=== PATIENT | male | born 1990 | race Two or more races ===

== ENCOUNTER 2019-12-11 20:35 | Emergency (ER) | payer OTHER | END 2019-12-11 22:18 | disposition home or self-care (01) | LOC: ER 20:35 | DX: S43.004A Unspecified dislocation of right shoulder joint, initial encounter (principal); X50.1XXA Overexertion from prolonged static or awkward postures, initial encounter; Y92.89 Other specified places as the place of occurrence of the external cause; Y99.0 Civilian activity done for income or pay ==